=== PATIENT | male | born 1945 | race Caucasian/White ===

== ENCOUNTER 2020-06-07 12:58 | Inpatient (IN) | payer MEDICARE ==
[~2020-06-07] VITALS: Ht 160 cm; Wt 64.4 kg
[2020-06-07] MEDS ORDERED: CEFTRIAXONE 1 G PREMIX 50 ML IV ONE (15:30)
[2020-06-07] MEDS ORDERED: NITROGLYCERIN 0.4MG TABLET SL SL PRN (15:30)
[2020-06-07] MEDS ORDERED: AZITHROMYCIN 500 MG in DEXT 5% WATER 250 ML IV ONE (15:30)
[2020-06-07] MEDS ORDERED: ASPIRIN 81MG TABLET PO ONE (15:30)
[2020-06-07 15:47] LABS: BASOPHILS % 0.6 % (0.0-2.0); EOSINOPHILS % 1.2 % (0.0-5.0); HEMATOCRIT. 40.7 % (42.0-52.0); HEMOGLOBIN. 14.1 g/dL (14.0-18.0); LYMPHOCYTES % 37.9 % (20.0-50.0); MEAN CORPUSCULAR HEMOGLOBIN 32.6 pg (28.0-32.0); MEAN PLATELET VOLUME 7.8 fl (7.4-10.4); NEUTROPHILS % 46.3 % (40.0-76.0); PLATELET 210 x1000/uL (130-400); RED BLOOD CELL COUNT 4.33 mill/uL (4.7-6.1); RED CELL DISTRIBUTION WIDTH 13.2 % (11.6-14.6)
[2020-06-07 15:54] LABS: CHLORIDE 99 mEq/L (98-107)
[2020-06-07 15:59] LABS: D-DIMER 0.64 mg/L FEU (<0.50); PARTIAL THROMBOPLASTIN TIME 25.6 sec (23.4-31.0); PROTHROMBIN TIME 10.2 sec (9.6-11.0)
[2020-06-07] MEDS ORDERED: POTASSIUM CHLORIDE 20MEQ TABLET SR PO ONE (17:00)
[2020-06-07 17:49] LABS: CLARITY URINE CLEAR (CLEAR); COLOR URINE YELLOW (YELLOW); KETONES URINE NEGATIVE (NEGATIVE); LEUKOCYTE ESTERASE URINE NEGATIVE (NEGATIVE); NITRITE URINE NEGATIVE (NEGATIVE); OCCULT BLOOD URINE NEGATIVE (NEGATIVE); PH URINE 8.5 (4.5-8.0); PROTEIN URINE NEGATIVE (NEGATIVE); SPECIFIC GRAVITY URINE 1.014 (1.005-1.030); UROBILINOGEN URINE 0.2 E.U./dL (0.2-1.0)
[2020-06-07] MEDS ORDERED: ENOXAPARIN 80MG/0.8ML SYR SUBCUT ONE (18:15)
[2020-06-07] MEDS ORDERED: IOHEXOL-350 100 ML BOTTLE ONE (23:13)
[2020-06-08] VITALS (7 sets, daily range): BP systolic 110–129; BP diastolic 45–80
[2020-06-08] MEDS ORDERED: ONDANSETRON HCL 4MG/2ML INJ IV PRN
[2020-06-08] MEDS ORDERED: DIPHENHYDRAMINE 50MG/ML VIAL IV PRN
[2020-06-08] MEDS ORDERED: GUAIFENESIN 200MG/10ML SUGAR FREE UDC PO PRN
[2020-06-08] MEDS ORDERED: ACETAMINOPHEN 325MG TABLET PO PRN
[2020-06-08] MEDS ORDERED: MAGNESIUM/ALUMINUM HYDROXIDE/SIMETHICONE 30ML UDC PO PRN
[2020-06-08] MEDS ORDERED: ALBUTEROL 6.7GM HFA INHALER ORI PRN
[2020-06-08] MEDS ORDERED: ZOLPIDEM TARTRATE 5MG TABLET PO PRN
[2020-06-08] MEDS ORDERED: CLONIDINE 0.1MG TABLET PO PRN
[2020-06-08] MEDS ORDERED: ENOXAPARIN 40MG/0.4ML SYR SUBCUT SCH (02:00)
[2020-06-08 05:14] LABS: BASOPHILS % 0.9 % (0.0-2.0); EOSINOPHILS % 3.5 % (0.0-5.0); HEMATOCRIT. 38.6 % (42.0-52.0); HEMOGLOBIN. 13.2 g/dL (14.0-18.0); LYMPHOCYTES % 43.4 % (20.0-50.0); MEAN CORPUSCULAR VOLUME 93.3 fL (80.0-94.0); MEAN PLATELET VOLUME 7.8 fl (7.4-10.4); MONOCYTES % 13.9 % (2.0-8.0); NEUTROPHILS % 38.3 % (40.0-76.0); PLATELET 205 x1000/uL (130-400); RED BLOOD CELL COUNT 4.14 mill/uL (4.7-6.1); RED CELL DISTRIBUTION WIDTH 13.1 % (11.6-14.6)
[2020-06-08 05:19] LABS: CHLORIDE 101 mEq/L (98-107)
[2020-06-08 05:26] LABS: PHOSPHORUS 3.1 mg/dL (2.5-4.9)
[2020-06-08] MEDS: SODIUM CHLORIDE 0.9% INJ 3ML FLUSH IVF SCH ×3 (06:39→20:56)
[2020-06-08] MEDS ORDERED: HYDR12.54 PO (09:37)
[2020-06-08] MEDS: FAMOTIDINE 20MG TABLET PO SCH ×2 (11:18→20:56)
[2020-06-08] MEDS: GUAIFENESIN 600MG ER TABLET PO SCH ×2 (11:18→20:56)
[2020-06-08] MEDS ORDERED: POTASSIUM CHLORIDE 20MEQ TABLET SR PO NR (13:00)
[2020-06-08] MEDS ORDERED: AZITHROMYCIN 500 MG in DEXT 5% WATER 250 ML IV SCH (15:00)
[2020-06-08] MEDS ORDERED: GUAIFENESIN-DM 200MG-20MG/10ML UDC PO PRN (16:00)
[2020-06-08] MEDS: POTASSIUM CHLORIDE 20MEQ TABLET SR PO SCH ×2 (17:19→17:30)
[2020-06-08] MEDS: ENOXAPARIN 40MG/0.4ML SYR SUBCUT SCH (20:56)
[2020-06-08] MEDS ORDERED: ALBUTEROL (0.083%) 2.5MG/3ML NEB HHN PRN (22:30)
[2020-06-09 00:25] VITALS: BP 129/68
[2020-06-09 04:00] VITALS: BP 117/65
[2020-06-09 04:30] VITALS: BP 117/65
[2020-06-09] MEDS: SODIUM CHLORIDE 0.9% INJ 3ML FLUSH IVF SCH ×3 (05:27→20:46)
[2020-06-09 06:59] LABS: CHLORIDE 105 mEq/L (98-107)
[2020-06-09 07:04] LABS: PHOSPHORUS 2.8 mg/dL (2.5-4.9)
[2020-06-09 08:00] VITALS: BP 127/79
[2020-06-09] MEDS: FAMOTIDINE 20MG TABLET PO SCH ×2 (08:53→20:45)
[2020-06-09] MEDS: GUAIFENESIN 600MG ER TABLET PO SCH ×2 (08:53→20:45)
[2020-06-09] MEDS: ACETAMINOPHEN 325MG TABLET PO PRN (10:20)
[2020-06-09 12:00] VITALS: BP 136/79
[2020-06-09] MEDS: BENZONATATE 100MG CAPSULE PO SCH ×2 (14:45→20:46)
[2020-06-09] MEDS ORDERED: AZITHROMYCIN 500 MG in DEXT 5% WATER 250 ML IV SCH (18:00)
[2020-06-09 20:00] VITALS: BP 134/71
[2020-06-09] MEDS: ENOXAPARIN 40MG/0.4ML SYR SUBCUT SCH (20:46)
[2020-06-10] VITALS: BP 129/78
[2020-06-10 04:30] VITALS: BP 154/69
[2020-06-10] MEDS: BENZONATATE 100MG CAPSULE PO SCH ×2 (05:38→15:06)
[2020-06-10] MEDS: SODIUM CHLORIDE 0.9% INJ 3ML FLUSH IVF SCH ×2 (05:41→14:00)
[2020-06-10] MEDS: ACETAMINOPHEN 325MG TABLET PO PRN (05:41)
[2020-06-10 08:12] VITALS: BP 127/74
[2020-06-10] MEDS: GUAIFENESIN 600MG ER TABLET PO SCH (09:05)
[2020-06-10] MEDS: FAMOTIDINE 20MG TABLET PO SCH (09:05)
[2020-06-10 12:30] VITALS: BP 133/67
[2020-06-10 17:12] VITALS: BP 133/67
== END 2020-06-10 18:50 | disposition home or self-care (01) | DRG 196 ==
LOC: ER 12:58 → EDSEX 12:58 → EDBD 12:58 → 7EST 23:09 → EDBEDREQTM 23:48 → EDBEDREQ 23:48 → ENRESERV 06-08 07:43 → 6WST 06-08 22:05
PROVIDERS: ADMIT Internal Medicine; ATTEND Internal Medicine
DX: J84.10 Pulmonary fibrosis, unspecified (principal); J96.00 Acute respiratory failure, unspecified whether with hypoxia or hypercapnia; J06.9 Acute upper respiratory infection, unspecified; E87.6 Hypokalemia; K44.9 Diaphragmatic hernia without obstruction or gangrene; K20.90 Esophagitis, unspecified without bleeding; I10 Essential (primary) hypertension; Z20.828 Contact with and (suspected) exposure to other viral communicable diseases; Z79.899 Other long term (current) drug therapy; R07.89 Other chest pain
CPT/HCPCS: 36415; 71045; 71275; 80048; 80053; 81003; 82962; 83605; 83735; 83880; 84100; 84484; 85025; 85379; 87635; 93005; 99285; J0456; J0696; J1650; J7060; Q9967

== ENCOUNTER 2020-06-17 14:43 | Emergency (ER) | payer MEDICARE ==
[~2020-06-17] VITALS: Ht 165.1 cm; Wt 78.0 kg
[~2020-06-17 14:43] MED LIST: HYDR12.54 PO
[2020-06-17 16:24] LABS: BASOPHILS % 1.3 % (0.0-2.0); EOSINOPHILS % 2.1 % (0.0-5.0); HEMOGLOBIN. 13.1 g/dL (14.0-18.0); LYMPHOCYTES % 38.8 % (20.0-50.0); MEAN CORPUSCULAR HEMOGLOBIN 32.2 pg (28.0-32.0); MEAN CORPUSCULAR VOLUME 93.7 fL (80.0-94.0); MEAN PLATELET VOLUME 7.4 fl (7.4-10.4); MONOCYTES % 9.7 % (2.0-8.0); NEUTROPHILS % 48.1 % (40.0-76.0); PLATELET 304 x1000/uL (130-400); RED BLOOD CELL COUNT 4.06 mill/uL (4.7-6.1); RED CELL DISTRIBUTION WIDTH 13.2 % (11.6-14.6)
[2020-06-17 16:26] LABS: CHLORIDE 107 mEq/L (98-107)
[2020-06-17 16:28] VITALS: BP 148/70
== END 2020-06-17 17:15 | disposition home or self-care (01) ==
LOC: ER 14:43
DX: R06.02 Shortness of breath (principal); I10 Essential (primary) hypertension
CPT/HCPCS: 36415; 71045; 80053; 84484; 85025; 93005; 99285